=== PATIENT | male | born 1980 | race Caucasian/White ===

== ENCOUNTER 2019-10-07 06:15 | Emergency (ER) | payer BC, OTHER ==
[2019-10-07] MEDS ORDERED: Aspirin 81 MG Tab.Chew PO ONE (06:21)
[2019-10-07] MEDS ORDERED: Sodium Chloride 0.9% 1,000 ML IV ONE (06:21)
[2019-10-07] MEDS ORDERED: Sodium Chloride 0.9% 10 ML Syringe FLUSH PRN (06:21)
[2019-10-07] MEDS: Nitroglycerin 0.4 MG Tab.SL SL PRN ×2 (06:32→06:55)
--- NOTE | 2019-10-07 06:47 | EDM.PDOC ---
<Ailin Persaud - Last Filed: 10/07/19 06:53> ED HPI GENERAL MEDICAL PROBLEM - General Chief Complaint: Cardiovascular Problem Stated Complaint: SYMPTOMS OF HEART ATTACK Time Seen by Provider: 10/07/19 06:21 Source of Information: Reports: Patient History Limitations: Reports: No Limitations - History of Present Illness INITIAL COMMENTS - FREE TEXT/NARRATIVE: ED ambulatory with c/o midsternal, left chest pain radiating up to neck onset approximately 20minutes prior, No sweating. Some nausea with onset, pain 5/10 at worst now 3/10 pressure sensation radiating to back. Some light headedness at onset No SOB. No cough. Hx HTN hi cholesterol. Non smoker. Admits some anxiety after onset of pain. Left Anterior Chest Pain Score (Numeric/FACES): 3 - Related Data Allergies Allergy/AdvReac Type Severity Reaction Status Date / Time No Known Allergies Allergy Verified 10/07/19 06:43 Home Meds: Home Meds Pramipexole [Mirapex] 1 mg PO DAILY 05/12/14 [History] lisinopriL [Prinivil] 20 mg PO DAILY 05/12/14 [History] atorvaSTATin [Lipitor] 20 mg PO BEDTIME 10/07/19 [History] Past Medical History HEENT History: Reports: Impaired Vision Cardiovascular History: Reports: High Cholesterol, Hypertension Neurological History: Reports: Migraines - Infectious Disease History Infectious Disease History: Reports: None - Past Surgical History Musculoskeletal Surgical History: Reports: Shoulder Surgery Other Musculoskeletal Surgeries/Procedures:: right shoulder rotator surgery Social & Family History - Family History Family Medical History: Noncontributory - Tobacco Use Smoking Status *Q: Former Smoker Used Tobacco, but Quit: No - Caffeine Use Caffeine Use: Reports: Coffee - Alcohol Use Date of Last Drink: 10/06/19 - Recreational Drug Use Recreational Drug Use: No - Living Situation & Occupation Living situation: Reports: , with Family Occupation: Employed ED ROS GENERAL - Review of Systems Review Of Systems: Comprehensive ROS is negative, except as noted in HPI. ED EXAM, GENERAL - Physical Exam Exam: See Below Exam Limited By: No Limitations General Appearance: Alert, Mild Distress Eye Exam: Bilateral Eye: EOMI, PERRL Ears: Normal External Exam, Hearing Grossly Normal Nose: Normal Inspection Throat/Mouth: Normal Inspection Head: Atraumatic, Normocephalic Neck: Normal Inspection Respiratory/Chest: No Respiratory Distress, Lungs Clear, Normal Breath Sounds Cardiovascular: Normal Peripheral Pulses, Regular Rate, Rhythm, No Edema GI/Abdominal: Normal Bowel Sounds, Soft, Non-Tender Neurological: Alert, Oriented, Normal Cognition Psychiatric: Normal Affect Skin Exam: Warm, Dry, Intact, Normal Color EKG INTERPRETATION Rhythm: NSR Course - Vital Signs Last Recorded V/S: Last Vital Signs Temp 36.2 C 10/07/19 09:50 Pulse 62 10/07/19 09:50 Resp 16 10/07/19 09:50 BP 107/59 L 10/07/19 09:50 Pulse Ox 99 10/07/19 09:50 - Orders/Labs/Meds Orders: Active Orders 24 hr Category Date Time Status Cardiac Monitoring [RC] . DIRECTED Care 10/07/19 06:21 Active EKG Documentation Completion [RC] ROUTINE Care 10/07/19 10:30 Active EKG Documentation Completion [RC] STAT Care 10/07/19 06:23 Active Peripheral IV Care [RC] . DIRECTED Care 10/07/19 06:22 Active Nitroglycerin [Nitrostat] Med 10/07/19 06:21 Active 0.4 mg SL Q5M PRN Sodium Chloride 0.9% [Normal Saline] 1,000 ml Med 10/07/19 06:21 Active IV .BOLUS Sodium Chloride 0.9% [Saline Flush] Med 10/07/19 06:21 Active 10 ml FLUSH ASDIRECTED PRN Peripheral IV Insertion Adult [OM.PC] Stat Oth 10/07/19 06:21 Ordered Medication Orders Sodium Chloride (Normal Saline) 1,000 mls @ 50 mls/hr IV .BOLUS ONE Stop: 10/08/19 02:20 Last Admin: 10/07/19 06:33 Dose: 50 mls/hr Nitroglycerin (Nitrostat) 0.4 mg SL Q5M PRN PRN Reason: Chest Pain Stop: 10/08/19 06:22 Last Admin: 10/07/19 06:55 Dose: 0.4 mg Admin: 10/07/19 06:32 Dose: 0.4 mg Sodium Chloride (Saline Flush) 10 ml FLUSH ASDIRECTED PRN PRN Reason: Keep Vein Open Last Admin: 10/07/19 06:33 Dose: 10 ml Labs: Laboratory Tests 10/07/19 10/07/19 10/07/19 Range/Units 06:33 06:33 06:33 WBC 8.4 (5.0-10.0) 10^3/uL RBC 4.85 (4.6-6.2) 10^6/uL Hgb 14.8 (14.0-18.0) g/dL Hct 42.9 (40.0-54.0) % MCV 88.5 (80-100) fL MCH 30.5 (27.0-34.0) pg MCHC 34.5 (33.0-35.0) g/dL Plt Count 256 (150-450) 10^3/uL Neut % (Auto) 48.7 (42.2-75.2) % Lymph % (Auto) 34.0 (20.5-50.1) % Taylor % (Auto) 13.2 H (2-8) % Eos % (Auto) 3.7 H (1.0-3.0) % Baso % (Auto) 0.4 (0.0-1.0) % PT 9.7 (9.0-12.0) SEC INR 1.0 (0.9-1.2) D-Dimer, Quantitative < 100 (0-400) ng/mL Sodium 139 (136-145) mmol/L Potassium 3.9 (3.5-5.1) mmol/L Chloride 104 (98-107) mmol/L Carbon Dioxide 28 (21-32) mmol/L Anion Gap 10.9 (7-13) mEq/L BUN 24 H (7-18) mg/dL Creatinine 1.09 (0.70-1.30) mg/dL Est Cr Clr Drug Dosing 92.79 mL/min Estimated GFR (MDRD) > 60 BUN/Creatinine Ratio 22.0 (No establ ref range) Glucose 99 (74-99) mg/dL Calcium 8.4 L (8.5-10.1) mg/dL Magnesium 2.2 (1.8-2.4) mg/dL Total Bilirubin 0.6 (0.2-1.0) mg/dL AST 24 (15-37) U/L ALT 53 (16-63) U/L Alkaline Phosphatase 88 (46-116) U/L CK-MB (CK-2) (0.0-3.6) ng/mL Troponin I < 0.017 (0.000-0.056) ng/mL Total Protein 6.9 (6.4-8.2) g/dL Albumin 4.0 (3.4-5.0) g/dL Globulin 2.9 Albumin/Globulin Ratio 1.4 Amylase 36 (25-115) U/L Lipase 98 (73-393) U/L 10/07/19 10/07/19 Range/Units 06:33 10:30 WBC (5.0-10.0) 10^3/uL RBC (4.6-6.2) 10^6/uL Hgb (14.0-18.0) g/dL Hct (40.0-54.0) % MCV (80-100) fL MCH (27.0-34.0) pg MCHC (33.0-35.0) g/dL Plt Count (150-450) 10^3/uL Neut % (Auto) (42.2-75.2) % Lymph % (Auto) (20.5-50.1) % Taylor % (Auto) (2-8) % Eos % (Auto) (1.0-3.0) % Baso % (Auto) (0.0-1.0) % PT (9.0-12.0) SEC INR (0.9-1.2) D-Dimer, Quantitative (0-400) ng/mL Sodium (136-145) mmol/L Potassium (3.5-5.1) mmol/L Chloride (98-107) mmol/L Carbon Dioxide (21-32) mmol/L Anion Gap (7-13) mEq/L BUN (7-18) mg/dL Creatinine (0.70-1.30) mg/dL Est Cr Clr Drug Dosing mL/min Estimated GFR (MDRD) BUN/Creatinine Ratio (No establ ref range) Glucose (74-99) mg/dL Calcium (8.5-10.1) mg/dL Magnesium (1.8-2.4) mg/dL Total Bilirubin (0.2-1.0) mg/dL AST (15-37) U/L ALT (16-63) U/L Alkaline Phosphatase (46-116) U/L CK-MB (CK-2) 2.4 (0.0-3.6) ng/mL Troponin I < 0.017 (0.000-0.056) ng/mL Total Protein (6.4-8.2) g/dL Albumin (3.4-5.0) g/dL Globulin Albumin/Globulin Ratio Amylase (25-115) U/L Lipase (73-393) U/L Meds: Medications Generic Name Dose Route Start Last Admin Trade Name Freq PRN Reason Stop Dose Admin Sodium Chloride 1,000 mls @ 50 mls/hr 10/07/19 06:21 10/07/19 06:33 Normal Saline IV 10/08/19 02:20 50 mls/hr .BOLUS ONE Administration Nitroglycerin 0.4 mg 10/07/19 06:21 10/07/19 06:55 Nitrostat SL 10/08/19 06:22 0.4 mg Q5M PRN Administration Chest Pain Sodium Chloride 10 ml 10/07/19 06:21 10/07/19 06:33 Saline Flush FLUSH 10 ml ASDIRECTED PRN Administration Keep Vein Open Discontinued Medications Generic Name Dose Route Start Last Admin Trade Name Freq PRN Reason Stop Dose Admin Al Hydroxide/Mg Hydroxide 30 ml 10/07/19 07:18 10/07/19 07:23 Gi Cocktail PO 10/07/19 07:19 30 ml ONETIME ONE Administration Aspirin 324 mg 10/07/19 06:21 10/07/19 06:32 Aspirin PO 10/07/19 06:22 324 mg ONETIME ONE Administration - Re-Assessments/Exams Free Text/Narrative Re-Assessment/Exam: 10/07/19 06:53 Chest pain decrease 3/10 to 2-2.5/10 following first NTG. Care tx with shift change Departure - Departure Disposition: Home, Self-Care 01 Clinical Impression: Nonspecific chest pain GERD (gastroesophageal reflux disease) Qualifiers: Esophagitis presence: with esophagitis Qualified Code(s): K21.0 - Gastro- esophageal reflux disease with esophagitis Instructions: Nonspecific Chest Pain, Adult, [id number], Gastroesophageal Reflux Disease, Adult, [id number] Forms: ED Department Discharge Care Plan Goals: The patient was advised of the examination, lab, EKG, repeat EKG results and repeat lab results during the visit. The patient was given aspirin, nitro and a GI Cocktail during the visit. The patient was discharged with a script for Omeprazole (20 mg) #30 to take 1 by mouth daily (20 minutes before eating). If the patient has any additional symptoms or concerns, the patient should either return to the emergency department or visit his primary care facility. Sepsis Event Note - Evaluation Sepsis Screening Result: No Definite Risk - Focused Exam Vital Signs: Vital Signs Temp Pulse Resp BP BP Pulse Ox 10/07/19 09:50 36.2 C 62 16 107/59 L 99 10/07/19 08:12 36.4 C 72 18 137/72 99 10/07/19 06:55 116/59 L 10/07/19 06:32 144/74 H 10/07/19 06:21 35.8 C L 84 18 144/74 H 96 Date Exam was Performed: 10/07/19 Time Exam was Performed: 06:53 - My Orders Last 24 Hours: My Active Orders 10/07/19 10:30 EKG Documentation Completion [RC] ROUTINE - Assessment/Plan Last 24 Hours: My Active Orders 10/07/19 10:30 EKG Documentation Completion [RC] ROUTINE <Sudheer Dickson - Last Filed: 10/07/19 11:22> Course - Re-Assessments/Exams Free Text/Narrative Re-Assessment/Exam: 10/07/19 07:52 The patient reports his chest pain has went away after the GI Cocktail, but he continues to have some chest pressure. The patient reports he does have a family history of cardiac problems. The patient will be kept as an extended ED patient for a repeat troponin and EKG at 1030. Departure - Departure Time of Disposition: 11:17 Condition: Fair Sepsis Event Note - Focused Exam Date Exam was Performed: 10/07/19 Time Exam was Performed: 11:17
[2019-10-07 07:01] LABS: ANION GAP 10.9 mEq/L (7-13); CHLORIDE,CL 104 mmol/L (98-107); SODIUM,NA 139 mmol/L (136-145)
[2019-10-07] MEDS ORDERED: GI Cocktail Oral Solution 30 ML PO ONE (07:18)
[2019-10-07 09:51] VITALS: BP 107/59; PULSE 62
== END 2019-10-07 11:30 | disposition home or self-care (01) ==
LOC: DL.ED 06:15
DX: K21.0 Gastro-esophageal reflux disease with esophagitis (principal); E78.00 Pure hypercholesterolemia, unspecified; I10 Essential (primary) hypertension; Z79.899 Other long term (current) drug therapy; Z87.891 Personal history of nicotine dependence
CPT/HCPCS: 36415; 71045; 80053; 82150; 82553; 83690; 83735; 84484; 85025; 85379; 85610; 93005; 96360; 99285; A9270; J7050

== ENCOUNTER 2021-02-16 14:09 | Emergency (ER) | payer BC ==
[2021-02-16] MEDS ORDERED: Bacitracin Oint 1 GM U/D Packet TOP ONE (14:43)
[2021-02-16] MEDS ORDERED: Diphtheria,Pertussis(Acell),Tetanus Vaccine 0.5 ML Syringe IM ONE (14:43)
[2021-02-16] MEDS ORDERED: Lidocaine 1% 30 ML SDV INJECT ONE (14:43)
--- NOTE | 2021-02-16 15:09 | EDM.PDOC ---
ED HPI GENERAL MEDICAL PROBLEM - General Chief Complaint: Laceration Stated Complaint: LEFT INDEX LACERATION Time Seen by Provider: 02/16/21 14:30 Source of Information: Reports: Patient History Limitations: Reports: No Limitations - History of Present Illness INITIAL COMMENTS - FREE TEXT/NARRATIVE: 40 y/o M c/o finger laceration. Pt was working on a portable grain clean when o ne of the spinning pulleys sliced his 2nd finger of the L hand. Pt controlled bleeding with pressure and rag and came to the ER. Is not up to date on his tetanus. Onset: Today, Sudden Duration: Hour(s): Location: Reports: Upper Extremity, Left Quality: Reports: Ache Severity: Mild Improves with: Reports: None Worsens with: Reports: Movement - Related Data Allergies Allergy/AdvReac Type Severity Reaction Status Date / Time No Known Allergies Allergy Verified 10/07/19 06:43 Home Meds: Home Meds Pramipexole [Mirapex] 1 mg PO DAILY 05/12/14 [History] lisinopriL [Prinivil] 20 mg PO DAILY 05/12/14 [History] atorvaSTATin [Lipitor] 20 mg PO BEDTIME 10/07/19 [History] Past Medical History HEENT History: Reports: Impaired Vision Cardiovascular History: Reports: High Cholesterol, Hypertension Neurological History: Reports: Migraines - Infectious Disease History Infectious Disease History: Reports: None - Past Surgical History Musculoskeletal Surgical History: Reports: Shoulder Surgery Other Musculoskeletal Surgeries/Procedures:: right shoulder rotator surgery Social & Family History - Family History Family Medical History: No Pertinent Family History - Caffeine Use Caffeine Use: Reports: Coffee - Living Situation & Occupation Living situation: Reports: , with Family Occupation: Employed ED ROS GENERAL - Review of Systems Review Of Systems: Comprehensive ROS is negative, except as noted in HPI. ED EXAM, SKIN/RASH Exam: See Below Exam Limited By: No Limitations General Appearance: Alert, No Apparent Distress Respiratory/Chest: No Respiratory Distress, Lungs Clear Cardiovascular: Normal Peripheral Pulses, Regular Rate, Rhythm Peripheral Pulses: 2+: Radial (L), Radial (R) Extremities: Other (2 cm laceration to the tip of katt 2nd finger of katt left hand.) ED SKIN PROCEDURES - Laceration/Wound Repair Left Distal Digit - 2nd (Index) Appearance: Subcutaneous Local Anesthesia - Lidocaine (Xylocaine): 1% Plain Local Anesthetic Volume: 1cc Skin Prep: Saline Exploration/Debridement/Repair: Wound Explored Closed with: Sutures Lac/Wound length In cm: 2 Suture Size: 5-0 # of Sutures: 4 Suture Type: Interrupted Sterile Dressing Applied: Nurse Tetanus Status Addressed: Yes Complications: No Course - Orders/Labs/Meds Orders: Active Orders 24 hr Category Date Time Status Vaccines to be Administered [RC] PER UNIT ROUTINE Care 02/16/21 14:43 Active Meds: Medications Discontinued Medications Generic Name Dose Route Start Last Admin Trade Name Maricruz PRN Reason Stop Dose Admin Bacitracin 1 dose 02/16/21 14:43 Bacitracin Oint 1 Gm U/D Packet TOP 02/16/21 14:44 ONETIME ONE Diphtheria/Tetanus/Acell Pertussis 0.5 ml 02/16/21 14:43 Diphtheria,Pertussis(Acell),Tetanus Vaccine 0.5 Ml Syringe IM 02/16/21 14:44 .ONCE ONE Lidocaine HCl 30 ml 02/16/21 14:43 Lidocaine 1% 30 Ml Sdv INJECT 02/16/21 14:44 ONETIME ONE Departure - Departure Time of Disposition: 15:12 Disposition: Home, Self-Care 01 Condition: Good Clinical Impression: Laceration - Discharge Information *PRESCRIPTION DRUG MONITORING PROGRAM REVIEWED*: Not Applicable *COPY OF PRESCRIPTION DRUG MONITORING REPORT IN PATIENT JANICE: Not Applicable Instructions: Laceration Care, Adult, [id number] Forms: ED Department Discharge Additional Instructions: Keep wound dry for 24 hrs. Use triple antibiotic ointment or aquaporin on wound to help it heal. Keep wound covered and cleaned Have your stitches taken out in 10-14 days.
[2021-02-16 15:14] VITALS: BP 141/81; PULSE 78
== END 2021-02-16 15:30 | disposition home or self-care (01) ==
LOC: DL.ED 14:09
DX: S61.211A Laceration without foreign body of left index finger without damage to nail, initial encounter (principal); E78.00 Pure hypercholesterolemia, unspecified; I10 Essential (primary) hypertension; Z79.899 Other long term (current) drug therapy; Z23 Encounter for immunization; W26.8XXA Contact with other sharp object(s), not elsewhere classified, initial encounter
CPT/HCPCS: 12001; 90471; 90715; 99282-25

== ENCOUNTER 2023-01-07 08:29 | Emergency (ER) | payer BC ==
[2023-01-07] MEDS ORDERED: Sodium Chloride 0.9% 10 ML Syringe FLUSH PRN (08:48)
[2023-01-07] MEDS ORDERED: Ondansetron 4 MG/2 ML SDV IV ONE (08:48)
[2023-01-07 09:00] LABS: BASOPHILS PERCENT AUTO 0.3 % (0.0-1.0); EOSINOPHILS PERCENT AUTO 4.2 % (1.0-3.0); HEMATOCRIT 43.4 % (40.0-54.0); HEMOGLOBIN 14.8 g/dL (14.0-18.0); LYMPHOCYTES PERCENT AUTO 31.9 % (20.5-50.1); MEAN CORPUSCULAR HEMOGLOBIN 30.6 pg (27.0-34.0); MEAN CORPUSCULAR HGB CONC 34.1 g/dL (33.0-35.0); MEAN CORPUSCULAR VOLUME 89.9 fL (80-100); NEUTROPHILS PERCENT AUTO 54.6 % (42.2-75.2); PLATELET COUNT,PLT 242 10^3/uL (150-450); RED BLOOD CELL COUNT 4.83 10^6/uL (4.6-6.2); WHITE BLOOD CELL COUNT,WBC 9.4 10^3/uL (5.0-10.0)
[2023-01-07 09:22] LABS: A/G RATIO 1.3; ALANINE AMINOTRANSFERASE,ALT 60 U/L (16-63); ALKALINE PHOSPHATASE 100 U/L (46-116); ANION GAP 14.8 mEq/L (7-13); ASPARTATE AMNIOTRANSFERASE,AST 30 U/L (15-37); BILIRUBIN TOTAL 0.9 mg/dL (0.2-1.0); BLOOD UREA NITROGEN,BUN 19 mg/dL (7-18); BUN/CREATININE RATIO 18.1 (No establ ref range); CALCIUM 8.9 mg/dL (8.5-10.1); CARBON DIOXIDE,CO2 27 mmol/L (21-32); CHLORIDE,CL 104 mmol/L (98-107); CREATININE 1.05 mg/dL (0.70-1.30); EST CRCL DRUG DOSING (CG) 92.58 mL/min; ESTIMATED GFR 91 mL/min (>=60); GLUCOSE RANDOM 93 mg/dL (70-99); LACTIC ACID 1.1 mmol/L (0.4-2.0); LIPASE 51 U/L (73-393); POTASSIUM,K 3.8 mmol/L (3.5-5.1); PROTEIN TOTAL,TP 7.2 g/dL (6.4-8.2); SODIUM,NA 142 mmol/L (136-145)
[2023-01-07 09:42] LABS: APPEARANCE,URINE CLEAR (CLEAR); BILIRUBIN,URINE NEGATIVE (NEGATIVE); COLOR,URINE YELLOW (YELLOW); GLUCOSE,URINE NEGATIVE (NEGATIVE); KETONES,URINE NEGATIVE (NEGATIVE); LEUKOCYTE ESTERASE,URINE NEGATIVE (NEGATIVE); NITRITE,URINE NEGATIVE (NEGATIVE); OCCULT BLOOD,URINE TRACE-INTACT (NEGATIVE); PROTEIN,URINE NEGATIVE (NEGATIVE)
[2023-01-07 09:56] LABS: BACTERIA,URINE RARE /HPF (0-FEW/HPF); EPITHELIAL CELLS,URINE RARE /HPF (NOT SEEN); RBC,URINE 0-5 /HPF (0-5); WBC,URINE 0-5 /HPF (0-5/HPF)
[2023-01-07 10:52] VITALS: BP 135/74; PULSE 63
== END 2023-01-07 10:43 | disposition home or self-care (01) ==
LOC: DL.ED 08:29
DX: R07.89 Other chest pain (principal); R10.84 Generalized abdominal pain; E78.00 Pure hypercholesterolemia, unspecified; I10 Essential (primary) hypertension; Z88.5 Allergy status to narcotic agent; Z79.899 Other long term (current) drug therapy
CPT/HCPCS: 36415; 71045; 76705; 80053; 81001; 83605; 83690; 84145; 84484; 85025; 85379; 93005; 96374; 99285-25; J2405; J3490

== ENCOUNTER 2023-01-13 07:24 | Day surgery (SDC) | payer BC ==
[2023-01-13] MEDS: Dextrose 5%-0.45% NaCl 1,000 ML IV SCH (08:01)
[2023-01-13] MEDS ORDERED: fentaNYL 100 MCG/2 ML SDV ONE (08:15)
[2023-01-13] MEDS ORDERED: fentaNYL 100 MCG/2 ML SDV IV ONE (08:15)
[2023-01-13] MEDS ORDERED: Midazolam 1 MG/ML 2 ML SDV ONE (08:15)
[2023-01-13] MEDS ORDERED: Midazolam 1 MG/ML 2 ML SDV IV ONE (08:15)
[2023-01-13] MEDS: fentaNYL 100 MCG/2 ML SDV IV ONE ×2 (08:51→08:52)
[2023-01-13] MEDS: Midazolam 1 MG/ML 2 ML SDV IV ONE ×2 (08:52→08:53)
[2023-01-13 10:12] VITALS: BP 109/60; PULSE 70
== END 2023-01-13 10:37 | disposition home or self-care (01) ==
LOC: DL.ENDO 07:24
PROVIDERS: ATTEND Internal Medicine Gastroenterology
DX: K31.84 Gastroparesis (principal); I10 Essential (primary) hypertension; K52.832 Lymphocytic colitis; G25.81 Restless legs syndrome; E66.09 Other obesity due to excess calories; Z98.890 Other specified postprocedural states; Z80.0 Family history of malignant neoplasm of digestive organs; Z88.5 Allergy status to narcotic agent; Z68.36 Body mass index [BMI] 36.0-36.9, adult
CPT/HCPCS: 87077; J2250; J3010; J7042

== ENCOUNTER 2024-03-01 21:02 | Emergency (ER) | payer BC | END 2024-03-01 23:03 | disposition left against medical advice (07) | LOC: DL.ED 21:02 | DX: Z53.21 Procedure and treatment not carried out due to patient leaving prior to being seen by health care provider (principal) ==